=== PATIENT | female | born 1985 | race African-American/Black ===

== ENCOUNTER 2018-01-09 18:43 | Emergency (ER) | payer SELFPAY ==
[~2018-01-09 18:43] MED LIST: IBUP-232 PO; LABE300T PO; PREN1CAP
--- NOTE | 2018-01-09 20:36 | PD ---
HPI Chief Complaint cough, flu symptoms Travel History International Travel<30 Days: No Contact w/Intl Traveler<30Days: No Known Affected Area: No History of Present Illness HPI 32-year-old 002, IUP at 29.1 care Compcare by obesity, chronic hypertension The patient presents complaining of a cough, muscle aches over the past 3 days she reports that her baby's daddy was ill a week and a half ago with similar symptoms. She reports that her baby has had the same symptoms over the past 3 days and was seen in the ED tonight with negative influenza testing. She reports that they were told in the ED that her baby has a "cold." She denies any fever, chills, nausea, vomiting at home. She also reports that she has had some vague right-sided pain over the past 2 months. There were no aggravating features tonight however she had called the clinic and they suggested she come in and be checked out. She has taken one Tylenol one time. There are no aggravating factors or other attempted treatments. She denies any leaking of fluid, vaginal bleeding, uterine cramping, or painful contractions. She reports good movement. She reports the pain appears to be in the muscular layer as opposed to deep in the tissues. She denies any other complaints today. Weeks Gestation: 29 Para: 2 : 3 History Past Medical History Narrative Medical Obesity Chronic hypertension Obstetric History Obstetric History 002 2 Past Surgical History Surgical History: No Previous Surgery Family History Narrative Family History DM Social History Alcohol Use: No Tobacco Use: No Substance Abuse: No Allergies-Medications (Allergen,Severity, Reaction): Coded Allergies: No Known Allergies (Unverified , 08/23/16) Home Meds Active Scripts Ibuprofen (Ibuprofen) 600 Mg Tab, 600 MG PO Q6H Y for CRAMPING, #30 TAB Prov:Melanie Sanchez MD R3 08/20/16 Labetalol (Labetalol) 300 Mg Tab, 300 MG PO BID for Blood Pressure Management, # 30 TAB 0 Refills Prov:Melanie Sanchez MD R3 08/20/16 Reported Medications Vit W/ Fe Polysacch C (Vitafol Ultra 29-0.6-0.4-200 mg) 1 Cap Cap 07/12/16 Review of Systems Except as stated in HPI: all other systems reviewed are Neg Physical Exam Narrative GENERAL: Well-nourished, well-developed patient. SKIN: Warm and dry. HEAD: Normocephalic and atraumatic. EYES: No scleral icterus. No injection or drainage. ENT: No nasal drainage noted. Mucous membranes pink. Airway patent. NECK: Supple, trachea midline. No JVD. CARDIOVASCULAR: Regular rate and rhythm without murmurs, gallops, or rubs. RESPIRATORY: Breath sounds equal bilaterally. No accessory muscle use. BREASTS: Deferred ABDOMEN/GI: Abdomen soft, non-tender, bowel sounds present, no rebound, no guarding Gravid GENITOURINARY: Deferred FHT's: heart tones are in the 130s with moderate terminal press operator variability, good accels, and no decels. This is a category one heart rate tracing and reactive NST. EXTREMITIES: No cyanosis or edema. BACK: Nontender without obvious deformity. NEUROLOGICAL: Awake and alert. Motor and sensory grossly within normal limits. Normal speech. Psychiatric: grossly normal memory, affect Musculoskeletal: grossly normal ROM, gait, muscle strength Data Data Orders Orders Vital Signs (Adult) .ON ADMISSION (01/09/18 20:34) ^ Labor Status (01/09/18 20:34) ^ Non Stress Test (01/09/18 20:34) Diet Liquid (01/10/18 Breakfast) Influenzae A/B Antigen (01/09/18 20:35) MDM Plan A/P: 1. IUP at 29.1 2. Cough, URI: patient with viral type illness, negative influenza testing. Likely similar symptoms to child, recommend comfort measures, rest, tylenol. Strict influenza, fever precautions. 3. wellbeing: reassuring testing with reactive NST and category one heart rate testing. [facility] daily. 4. No evidence of labor, strict labor precautions. 5. Right sided pain: appears to be musculoskeletal, recommend comfort measures , tylenol. If no resolution or worsens, return to ED. 6. Follow up with primary Ob in 2-3 days or sooner if needed 7. History of chronic HTN: BP normal today with appropriate size cuff. 8. Follow up with primary Ob in 2-3 days or sooner if needed. Diagnosis Diagnosis: Primary Impression: 29 weeks gestation of Additional Impression: Viral respiratory illness Disposition: DISCHARGE HOME Condition: Helen Vera MD January 09, 2018 20:36
== END 2018-01-09 22:00 | disposition home or self-care (01) ==
LOC: HOBED 18:43
DX: O99.513 Diseases of the respiratory system complicating pregnancy, third trimester (principal); J06.9 Acute upper respiratory infection, unspecified; B97.89 Other viral agents as the cause of diseases classified elsewhere; O99.213 Obesity complicating pregnancy, third trimester; O10.013 Pre-existing essential hypertension complicating pregnancy, third trimester; Z3A.29 29 weeks gestation of pregnancy
CPT/HCPCS: 87804; 99283

== ENCOUNTER 2018-03-14 19:30 | Inpatient (IN) ==
--- NOTE | 2018-03-14 20:20 | ED ---
History of Present Illness Primary Care Physician: No Primary Care Physician Chief Complaint: Hypertension in the office History of Present Illness: 33-year-old who is at 38 weeks 3 days comes in for evaluation of high blood pressure. She states that she gets care at [facility] office and states that her blood pressure was 164/102 in the office. She has had hypertension with her 2 previous pregnancies with an induction due to the hypertension with her last patient's denies chronic hypertension and states that her blood pressures returned back to normal between pregnancies. She does have a family history of hypertension in the family. Patient denies any other antepartum complication and said to previously healthy spontaneous vaginal deliveries. First baby was 5 lbs. 15 oz. and second baby was 6-1/2 pounds. Her group B strep is negative Weeks Gestation:: 38 Para: 2 : 4 - Inpatient Certification If this patient has been admitted as an Inpatient: I certify that the inpatient services were ordered in accordance with Medicare regulations governing the order. This includes certification that hospital inpatient services are reasonable and necessary and in the case of services not specified as inpatient-only under 42 CFR 419.22(n), that they are appropriately provided as inpatient services in accordance to with the 2-midnight benchmark under 43 CFR 412.3(e) Estimated Total Length of Stay (Days): 3 Review of Systems All other systems reviewed negative except as stated in HPI PMFSH - History History Provided By: Patient - Medical / Surgical Hx Neg / Unobtainable Medical Problems Denied: Yes Surgical History: No Previous Surgery - Tobacco History Smoking Status: Never smoker - Alcohol History How Often Do You Have a Drink Containing Alcohol: Never - Substance Use History Substance History: No History of Abuse - Travel History History of Recent Travel: No Recent Travel in the [place] Within the Last 8 Weeks: No Recent Travel Out of the Country Within the Last 8 Weeks: No Medications and Allergies Allergies Allergy/AdvReac Type Severity Reaction Status Date / Time No Known Allergies Allergy Unknown NONE Uncoded 03/14/18 20:08 Home Medications Medication Instructions Recorded Confirmed Type PNV cmb#95-ferrous fumarate-FA 1 tab PO DAILY 03/07/18 03/07/18 History [] ferrous sulfate [Iron (ferrous 325 mg PO DAILY 03/07/18 03/07/18 History sulfate)] Exam Vital signs: Vital Signs 03/14/18 20:02 03/14/18 20:04 03/14/18 20:07 Temperature 98.3 F Pulse Rate 103 H 108 H Respiratory Rate 18 Blood Pressure 164/91 H 151/81 H Intake & Output 03/14/18 03/14/18 03/15/18 06:59 18:59 06:59 Weight 99.337 kg Narrative: Pelvic Exam: Cervix: [Posterior] Dilatation: [1-] Effacement: [-50] Station: [--4] Presentation: [-Vertex] Membranes: [intact or ruptured] intact Uterine Contractions: [-] Irregular occasional FHT's: Category: [-1] Baseline: [-140] Reactive: [-Moderate] Variability: [Moderate-] Decels: [-Absent] - Constitutional no acute distress - Routine HEENT Exam Head: Present: normocephalic, atraumatic - Routine Neck Exam Present: supple, full ROM - Routine Respiratory Exam Present: CTA bilaterally - Routine Cardiovascular Exam Present: RRR - Routine Abdominal Exam Present: soft, normoactive bowel sounds Results - Labs CBC & Chem 7: 03/14/18 20:45 03/14/18 20:27 Group B Strep: Negative Assessment and Plan - Diagnosis (1) 38 weeks gestation of Code(s): Z3A.38 - 38 weeks gestation of Status: Acute (2) Pre-eclampsia superimposed on chronic hypertension, antepartum Code(s): O11.9 - Pre-existing hypertension with pre-eclampsia, unspecified trimester; O10.019 - Pre-existing essential hypertension complicating , unspecified trimester Status: Acute - Plan Admit for induction of labor due to CHTN with superimposed preeclampsia Magnesium sulfate for prophylaxis Antihypertensives as necessary Discharge Plan - Discharge Disposition Patient Disposition: 30 Still Patient - Physicians Team ED Provider: Stefanie Brito Primary Care Provider: Primary Care Sandhya Armstrong - Rxs /Orders / Referrals /Forms Prescriptions: No Action ferrous sulfate [Iron (ferrous sulfate)] 325 mg (65 mg iron) Tablet 325 mg PO DAILY PNV cmb#95-ferrous fumarate-FA [] 28 mg iron- 800 mcg Tablet 1 tab PO DAILY - Discharge Instructions Print Language: Tajik
[2018-03-14 21:00] LABS: Hematocrit 37.6 % (35.0-46.0); Hemoglobin 12.7 gm/dL (11.6-15.3); Mean Corpuscular HGB Conc 33.9 % (32.0-36.0); Mean Corpuscular Hemoglobin 30.4 pg (27.0-34.0); Mean Corpuscular Volume 89.8 fL (80.0-100.0); Mean Platelet Volume 10.3 fL (7.0-11.0); Platelet Count 136 th/mm3 (150-450); Red Blood Count 4.19 mil/mm3 (4.00-5.30); Red Cell Distribution Width 14.9 % (11.6-17.2); White Blood Count 7.9 th/mm3 (4.0-11.0)
[2018-03-14 21:14] LABS: Albumin 2.8 g/dL (3.4-5.0); Anion Gap 13 meq/L (5-15); Aspartate Aminotransferase 9 U/L (15-37); Blood Urea Nitrogen 10 mg/dL (7-18); Calcium 9.1 mg/dL (8.5-10.1); Carbon Dioxide 19.2 meq/L (21.0-32.0); Chloride 109 meq/L (98-107); Glomerular Filtration Rate Greater Than 89 mL/min (>89); Glucose,Random 105 mg/dL (74-106); Potassium 3.4 meq/L (3.5-5.1); Sodium 141 meq/L (136-145); Uric Acid 5.1 mg/dl (2.6-6.0)
[2018-03-14 21:15] LABS: Alanine Aminotransferase 14 U/L (10-53)
[2018-03-14 21:17] LABS: Alkaline Phosphatase 101 U/L (45-117); Total Protein 6.5 g/dL (6.4-8.2)
[2018-03-14 21:18] LABS: Protein/Creatinine Ratio,Urine 0.13 (0.00-0.14)
[2018-03-14 21:24] LABS: Bacteria,Urine Moderate /hpf; Bilirubin,Urine Negative (Negative); Clarity,Urine Hazy (Clear); Color,Urine Yellow (Yellw/Straw); Glucose,Urine (UA) 50 mg/dL (Negative); Leukocyte Esterase,Urine Trace (Negative); Mucus,Urine Few /lpf (Occasional); Nitrite,Urine Negative (Negative); Specific Gravity,Urine 1.028 (1.002-1.035); Squamous Epithelial Cell,Urine 10 /hpf (0-5)
[2018-03-14] MEDS ORDERED: fentaNYL Citrate Inj 100 MCG/2 ML Ampul IV.PUSH PRN (21:44)
[2018-03-14] MEDS ORDERED: Sod Chloride 0.9% Inj 1,000 ML IV.CONT PRN (21:44)
[2018-03-14] MEDS ORDERED: Oxytocin 30 Units/500ml Premix 30 UNITS/500 ML BAG IV.SIG ONE (21:44)
[2018-03-14] MEDS ORDERED: Naloxone Inj 0.4 MG/ML Vial IV.PUSH PRN (21:44)
[2018-03-14] MEDS ORDERED: Sodium Chlor 0.9% Inj 500 ML IV.SIG PRN (21:44)
[2018-03-14] MEDS ORDERED: Citric Acid/Sodium Citrate Liq 30 ML UDC PO SCH (21:45)
[2018-03-14] MEDS ORDERED: Mag Sulf/Water 4 gm/100 ml 100 ML IV.SIG ONE (21:47)
[2018-03-14] MEDS ORDERED: Mag Sulf/Water 40 gm/1000 ml 40 GM/1,000 ML BAG IV.CONT SCH (22:00)
[2018-03-14 22:18] LABS: Amphetamine Urine With Conf Neg (Neg); Benzodiazepine Urine With Conf Neg (Neg)
[2018-03-14] MEDS ORDERED: Labetalol HCl Inj 100 MG/20 ML Vial IV.PUSH PRN ×3 (22:52→23:13)
[2018-03-14] MEDS ORDERED: Labetalol HCl Inj 100 MG/20 ML Vial ONE (22:53)
[2018-03-15] MEDS: Zolpidem Tartrate 5 MG Tablet PO PRN (00:40)
[2018-03-15] MEDS ORDERED: Calcium Chloride Inj 1 GM/10 ML Syringe IV.PUSH PRN (01:15)
[2018-03-15] MEDS ORDERED: Oxytocin 30 Units/500ml Premix 30 UNITS/500 ML BAG IV.SIG PRN (08:15)
--- NOTE | 2018-03-15 08:40 | P.OBLABOR ---
Subjective Interval history: Ms. Toledo is a 33 yo at 38/4 with chronic HTN and pre-eclampsia here for induction of labor. Cervidil placed last night and came out at about 6:00 today. Patient reports that she is only feeling minimal contractions. Cervical check- /-4. [address] cytotec 25mcg Objective Vital Signs: Vital Signs - 8 hr 03/15/18 01:00 03/15/18 01:35 03/15/18 01:40 Temperature Pulse Rate 97 H 98 H 100 H Respiratory Rate 16 Blood Pressure 149/97 H 03/15/18 02:00 03/15/18 02:10 03/15/18 02:25 Temperature Pulse Rate 98 H 98 H 99 H Respiratory Rate 16 Blood Pressure 146/102 H 03/15/18 02:40 03/15/18 02:59 03/15/18 03:00 Temperature Pulse Rate 106 H 101 H 103 H Respiratory Rate 18 Blood Pressure 124/79 03/15/18 03:25 03/15/18 03:30 03/15/18 03:50 Temperature Pulse Rate 103 H 105 H 102 H Respiratory Rate Blood Pressure 03/15/18 03:55 03/15/18 04:00 03/15/18 04:25 Temperature 98.1 F Pulse Rate 100 H 101 H 101 H Respiratory Rate 16 Blood Pressure 139/98 H 03/15/18 04:30 03/15/18 04:35 03/15/18 04:40 Temperature Pulse Rate 99 H 104 H Respiratory Rate 18 Blood Pressure 03/15/18 04:55 03/15/18 05:00 03/15/18 05:10 Temperature Pulse Rate 103 H 103 H Respiratory Rate 18 Blood Pressure 147/94 H 03/15/18 05:20 03/15/18 05:25 03/15/18 05:40 Temperature Pulse Rate 105 H 103 H 113 H Respiratory Rate Blood Pressure 03/15/18 05:55 03/15/18 05:59 03/15/18 06:05 Temperature Pulse Rate 110 H 100 H Respiratory Rate 20 Blood Pressure 159/108 H 03/15/18 06:10 03/15/18 06:15 03/15/18 06:25 Temperature Pulse Rate 102 H 102 H 100 H Respiratory Rate Blood Pressure 03/15/18 06:40 03/15/18 06:50 03/15/18 07:00 Temperature Pulse Rate 98 H 101 H Respiratory Rate 18 Blood Pressure 142/94 H 03/15/18 08:30 Temperature 97.8 F Pulse Rate 103 H Respiratory Rate 18 Blood Pressure 150/99 H Objective: Pelvic Exam: Cervix: Dilatation: 2 Effacement: 60 Station: -4 Membranes: intact Uterine Contractions: minimal FHT's: Category: 1 Baseline: 135 Reactive: yes Variability: moderate Decels: none Weeks Gestation: 38 Assessment and Plan - Diagnosis (1) 38 weeks gestation of Code(s): Z3A.38 - 38 weeks gestation of Status: Acute - Plan Continue with antepartum care. Pitocin 09/03/29. Place cytotec 25g
[2018-03-15] MEDS: fentaNYL Citrate Inj 100 MCG/2 ML Ampul IV.PUSH PRN ×2 (13:32→17:01)
--- NOTE | 2018-03-15 14:53 | P.OBLABOR ---
Subjective Interval history: Ms. Toledo is a 33yo at 38/4. At about 14:40 the patient began to vomit and reported feeling light headed. She feels as if she is having trouble staying awake. Nursing reports that the patient's urine output has been good. Mg has been running since about 22:00 yesterday. Objective Vital Signs: Vital Signs - 8 hr 03/15/18 06:50 03/15/18 07:00 03/15/18 08:30 Temperature 97.8 F Pulse Rate 101 H 103 H Respiratory Rate 18 18 Blood Pressure 142/94 H 150/99 H 03/15/18 08:55 03/15/18 09:00 03/15/18 09:05 Temperature Pulse Rate 103 H 109 H 102 H Respiratory Rate 18 Blood Pressure 125/75 03/15/18 09:10 03/15/18 10:10 03/15/18 10:25 Temperature Pulse Rate 101 H 105 H 109 H Respiratory Rate 18 Blood Pressure 139/83 03/15/18 10:50 03/15/18 10:57 03/15/18 11:10 Temperature Pulse Rate 95 H 100 H Respiratory Rate 18 Blood Pressure 134/97 H 03/15/18 11:25 03/15/18 11:55 03/15/18 11:59 Temperature Pulse Rate 107 H 100 H Respiratory Rate 18 Blood Pressure 03/15/18 12:00 03/15/18 13:00 03/15/18 13:20 Temperature 98.2 F Pulse Rate 94 H 96 H 95 H Respiratory Rate 18 Blood Pressure 142/92 H 144/101 H 03/15/18 14:00 03/15/18 14:41 03/15/18 14:42 Temperature Pulse Rate 93 H 95 H Respiratory Rate 18 Blood Pressure 142/95 H 158/107 H Objective: Cardiovascular: RRR, S1 and S2. Respiratory: Lungs CTAB, no accessory muscle use Neurologic: Reflexes unable to be elicited with stethoscope FHT's: Category: 2 Baseline: 135 Reactive: yes Variability: mild to moderate Decels: no Weeks Gestation: 38 Medical Induction Start Date: 03/14/18 Assessment and Plan - Diagnosis (1) 38 weeks gestation of Code(s): Z3A.38 - 38 weeks gestation of Status: Acute - Plan Category 2 FHT. D/c Mg Stat Mg level Zofran 4mg for nausea Monitor for clinical improvement
[2018-03-15] MEDS ORDERED: fentaNYL 2MCG-Bupiv 0.125% Epi 150 ML EPIDURAL ONE (18:53)
[2018-03-15] MEDS ORDERED: Lidocaine PF 1% Inj 30 ML Vial ONE (23:32)
[2018-03-16] MEDS ORDERED: Naloxone Inj 0.4 MG/ML Vial IV.PUSH PRN (02:19)
[2018-03-16] MEDS ORDERED: Witch Hazel 50%/Glyderin 12.5% 40 Pad Jar RECTAL PRN (02:19)
[2018-03-16] MEDS ORDERED: Bisacodyl 10 MG Supp RECTAL PRN (02:19)
[2018-03-16] MEDS ORDERED: Benzocaine 20% Top Spray 60 ML Can TOPICAL PRN (02:19)
--- NOTE | 2018-03-16 02:19 | P.OBDELI ---
Weeks Gestation: 38 Patient Started Active Labor: Yes Medical Induction of Labor: Yes Artificial Rupture of Membrane: No Anesthesia: Epidural Episiotomy: none Vaginal Delivery: Normal Presentation: Occiput anterior Nuchal Cord: None Delayed Cord Clamping (45 sec): Yes Placenta: Spontaneous delivery, 3 vessel cord Laceration: None Estimated blood loss (mL): 150 Infant: Female (wt pending, APGARs 9/9, delivered at 02:05)
[2018-03-16] MEDS ORDERED: Oxytocin 30 Units/500ml Premix 30 UNITS/500 ML BAG IV.CONT SCH (02:30)
--- NOTE | 2018-03-16 08:01 | P.PNOB ---
Subjective Post day: 0 Interval history: Ms Toledo delivered early this morning and has had no acute events since then; however, BP was elevated to 151/84. On recheck, BP was 141/81. Pain is controlled, voided twice, taking PO with no nausea, but not ambulating yet or BM , no flatulence. Bleeding is decreasing with no clots. Pt plans to breastfeed and augment with a bottle. She is contemplating a Nexplanon for control. All questions were answered. Denies CP, SOB, N/V/D, DVT pain. Objective Vital Signs/I&O: Vital Signs 03/15/18 08:30 03/15/18 08:55 03/15/18 09:00 Temperature 97.8 F Pulse Rate 103 H 103 H 109 H Respiratory Rate 18 18 Blood Pressure 150/99 H 125/75 03/15/18 09:05 03/15/18 09:10 03/15/18 10:10 Temperature Pulse Rate 102 H 101 H 105 H Respiratory Rate 18 Blood Pressure 139/83 03/15/18 10:25 03/15/18 10:50 03/15/18 10:57 Temperature Pulse Rate 109 H 95 H Respiratory Rate 18 Blood Pressure 03/15/18 11:10 03/15/18 11:25 03/15/18 11:55 Temperature Pulse Rate 100 H 107 H 100 H Respiratory Rate Blood Pressure 134/97 H 03/15/18 11:59 03/15/18 12:00 03/15/18 13:00 Temperature 98.2 F Pulse Rate 94 H 96 H Respiratory Rate 18 18 Blood Pressure 142/92 H 144/101 H 03/15/18 13:20 03/15/18 14:00 03/15/18 14:41 Temperature Pulse Rate 95 H 93 H 95 H Respiratory Rate Blood Pressure 142/95 H 158/107 H 03/15/18 14:42 03/15/18 15:01 03/15/18 15:08 Temperature Pulse Rate 88 Respiratory Rate 18 18 Blood Pressure 151/98 H 03/15/18 15:31 03/15/18 15:40 03/15/18 16:01 Temperature Pulse Rate 89 94 H Respiratory Rate 18 Blood Pressure 151/106 H 158/91 H 03/15/18 16:45 03/15/18 17:00 03/15/18 18:00 Temperature 98.1 F Pulse Rate 89 86 Respiratory Rate 18 18 Blood Pressure 143/99 H 147/108 H 03/15/18 19:06 03/15/18 19:10 03/15/18 19:21 Temperature Pulse Rate 115 H Respiratory Rate Blood Pressure 173/144 H 147/104 H 03/15/18 19:25 03/15/18 19:36 03/15/18 19:40 Temperature Pulse Rate 104 H 95 H 93 H Respiratory Rate Blood Pressure 127/79 118/78 03/15/18 19:42 03/15/18 19:51 03/15/18 21:31 Temperature 98.1 F Pulse Rate 106 H Respiratory Rate 18 Blood Pressure 108/65 128/77 03/15/18 21:34 03/15/18 21:46 03/15/18 22:01 Temperature 97.8 F Pulse Rate 100 H 87 Respiratory Rate Blood Pressure 126/88 122/79 03/15/18 22:15 03/15/18 22:31 03/15/18 23:00 Temperature Pulse Rate 87 86 87 Respiratory Rate Blood Pressure 115/78 117/73 96/73 L 03/15/18 23:15 03/15/18 23:45 03/16/18 00:16 Temperature Pulse Rate 87 108 H Respiratory Rate Blood Pressure 111/66 109/72 142/91 H 03/16/18 00:51 03/16/18 01:15 03/16/18 01:31 Temperature 98.3 F Pulse Rate 106 H 130 H Respiratory Rate Blood Pressure 135/93 H 140/104 H 03/16/18 02:40 03/16/18 02:45 03/16/18 03:10 Temperature 98.8 F Pulse Rate 130 H 108 H Respiratory Rate 18 18 Blood Pressure 148/83 H 150/94 H 03/16/18 03:13 03/16/18 05:30 Temperature 99.5 F Pulse Rate 115 H 105 H Respiratory Rate 20 Blood Pressure 99/74 L 151/84 H Intake & Output 03/15/18 03/16/18 03/16/18 18:59 06:59 18:59 Intake Total 1000 / 1000 Balance 1000 / 1000 Intake: IV 1000 / 1000 LR 1000 mL Inj 1,000 ML @ 75 1000 / 1000 mls/hr IV.CONT .[id number] [facility] Rx# :[id number] Result Diagrams: 03/14/18 20:45 03/14/18 20:27 Objective Remarks: GENERAL: Well-nourished, well-developed patient. CARDIOVASCULAR: Regular rate and rhythm without murmurs, gallops, or rubs. RESPIRATORY: Breath sounds equal bilaterally. No accessory muscle use. ABDOMEN/GI: Abdomen soft, non-tender. Fundus: Firm, non-tender at umbilicus. GENITOURINARY: Light to moderate bleeding. EXTREMITIES: No cyanosis or edema, non-tender, without signs of DVT. Medications and IVs: Active Medications Acetaminophen (Tylenol) 650 mg PO Q4H PRN PRN Reason: PAIN SCALE 1 TO 2 Al Hydroxide/Mg Hydroxide (Milk Of Magnesia Liq) 30 ml PO Q12H PRN PRN Reason: MILD CONSTIPATION Benzocaine (Americaine 20% Top Beyer) 1 spray TOPICAL Q4H PRN PRN Reason: For Perineum Discomfort Bisacodyl (Dulcolax Supp) 10 mg RECTAL DAILY PRN PRN Reason: SEVERE CONSITIPATION Calcium Chloride (Calcium Chloride Inj) 1 gm IV.PUSH PRN PRN PRN Reason: MAGNESIUM TOXICITY Citric Acid/Sodium Citrate (Sodium Citrate/Citric Acid Liq) 30 ml PO [employer] [facility] Stop: 03/18/18 21:44 Diphtheria/Pertussis/Tetanus Vacc (Boostrix Vaccine Inj) 0.5 ml IM .ONCE ONE Stop: 03/16/18 16:01 Fentanyl Citrate (Fentanyl Inj) 50 mcg IV.PUSH Q1H PRN PRN Reason: Pain Scale 3 - 5 Last Admin: 03/15/18 05:55 Dose: 50 mcg Fentanyl Citrate (Fentanyl Inj) 100 mcg IV.PUSH Q1H PRN PRN Reason: PAIN SCALE 6 TO 10 Last Admin: 03/15/18 17:01 Dose: 100 mcg Lactated Ringer's (Lr 1000 Ml Inj) 1,000 mls @ 125 mls/hr IV.CONT .Q8H [facility] Last Admin: 03/15/18 19:37 Dose: Not Given Sodium Chloride (Ns Inj) 500 mls @ 1,000 mls/hr IV.SIG UNSCH PRN PRN Reason: SEE LABEL COMMENTS Sodium Chloride (Ns Inj) 1,000 mls @ 100 mls/hr IV.CONT .Q10H PRN PRN Reason: SEE LABEL COMMENTS Lactated Ringer's (Lr 1000 Ml Inj) 1,000 mls @ 3,000 mls/hr IV.SIG UNSCH PRN PRN Reason: compromise or epidural Last Admin: 03/15/18 19:33 Dose: 3,000 mls/hr Lactated Ringer's (Lr 1000 Ml Inj) 1,000 mls @ 75 mls/hr IV.CONT .[id number] [facility] Last Admin: 03/15/18 11:32 Dose: 75 mls/hr Magnesium Sulfate (Magnesium Sulfate/Water 40 Gm/1000 Ml Premix) 40 gm in 1, 000 mls @ 50 mls/hr IV.CONT Q24H [facility] Last Admin: 03/14/18 22:31 Dose: 2 gm/hr, 50 mls/hr Acetaminophen (Ofirmev Inj) 1,000 mg in 100 mls @ 400 mls/hr IV.SIG Q8H PRN PRN Reason: PAIN SCALE 1 TO 10 Last Admin: 03/15/18 09:03 Dose: 400 mls/hr Oxytocin (Pitocin 30 Units/Ns 500 Ml Premix) 30 units in 500 mls @ 1 mls/hr IV.SIG TITRATE PRN; Protocol PRN Reason: For induction of labor Last Admin: 03/15/18 13:31 Dose: 1 milliunit/min, 1 mls/hr Labetalol HCl (Trandate Inj) 40 mg IV.PUSH NOW PRN PRN Reason: SEE LABEL COMMENTS Labetalol HCl (Trandate Inj) 80 mg IV.PUSH NOW PRN PRN Reason: SEE LABEL COMMENTS Lactulose (Lactulose Liq) 30 ml PO DAILY PRN PRN Reason: SEVERE CONSITIPATION Lidocaine HCl (Xylocaine 1% Inj) 0.1 ml I-DERMAL PRN PRN PRN Reason: For IV start Stop: 03/17/18 21:43 Lidocaine HCl (Xylocaine 1% Inj) 10 ml INFILTRATN PRN PRN PRN Reason: For episiotomy repair Stop: 03/16/18 21:43 Measles/Mumps/Rubella Vaccine Live (M-M-R Ii Vaccine Inj) 0.5 ml SQ .ONCE ONE Stop: 03/16/18 16:01 Mineral Oil (Muri-Lube Oil) 10 ml TOPICAL PRN PRN PRN Reason: PRN perineal massage Naloxone HCl (Narcan Inj) 0.1 mg IV.PUSH Q2M PRN PRN Reason: for opiate reversal Naloxone HCl (Narcan Inj) 0.1 mg IV.PUSH Q2M PRN PRN Reason: for opiate reversal Ondansetron HCl (Zofran Inj) 4 mg IV.PUSH Q6H PRN PRN Reason: NAUSEA OR VOMITING Last Admin: 03/15/18 22:32 Dose: 4 mg Ondansetron HCl (Zofran Odt) 4 mg PO Q6H PRN PRN Reason: NAUSEA OR VOMITING Vit/Calcium/Iron/Folic Ac (Stuartnatal Plus 3) 1 tab PO DAILY [facility] Senna/Docusate Sodium (Caron-Colace) 1 tab PO BID [facility] Sennosides (Senokot) 17.2 mg PO Q12H PRN PRN Reason: Moderate Constipation Sodium Chloride (Ns Flush) 2 ml IV.FLUSH BID [facility] Last Admin: 03/15/18 19:36 Dose: Not Given Sodium Chloride (Ns Flush) 2 ml IV.FLUSH PRN PRN PRN Reason: FLUSH AFTER USING IV ACCESS Sodium Chloride (Ns Flush) 2 ml IV.FLUSH BID [facility] Last Admin: 03/15/18 19:37 Dose: Not Given Sodium Chloride (Ns Flush) 2 ml IV.FLUSH PRN PRN PRN Reason: FLUSH AFTER USING IV ACCESS Sodium Chloride (Ns Flush) 2 ml IV.FLUSH BID [facility] Sodium Chloride (Ns Flush) 2 ml IV.FLUSH PRN PRN PRN Reason: FLUSH AFTER USING IV ACCESS Witch Tammie/Glycerin (Tucks Pads) 1 applicatio RECTAL QID PRN PRN Reason: HEMORRHOIDS Zolpidem Tartrate (Ambien) 5 mg PO HS PRN PRN Reason: INSOMNIA Last Admin: 03/15/18 00:40 Dose: 5 mg Assessment and Plan - Diagnosis (1) 38 weeks gestation of Code(s): Z3A.38 - 38 weeks gestation of Status: Acute Plan: 1. Routine care -PRN Motrin and tylenol for pain -Encourage OOB/ambulation -Encourage -Advised to take showers/no baths for next 2 weeks -Advised pelvic rest; no sexual activity for 6 weeks -Pt will discuss nexplanon at 6 week visit (2) Pre-eclampsia superimposed on chronic hypertension, delivered Code(s): O11.4 - Pre-existing hypertension with pre-eclampsia, complicating childbirth; O10.92 - Unspecified pre-existing hypertension complicating childbirth Status: Acute Plan: 1. Pre-eclampsia superimposed on chronic HTN -BP elevated this morning to 150s/100s -Monitor BP; consider PO Labetalol if SBP >160 and/or DBP > [address] Rayo - Plan Category 2 FHT. D/c Mg Stat Mg level Zofran 4mg for nausea Monitor for clinical improvement
[2018-03-16] MEDS: Prenatal Vit/Ca/Iron/Folic Acid Tablet PO SCH (09:55)
[2018-03-16] MEDS: Senna/Docusate Sodium 8.6/50 MG Tablet PO SCH ×2 (09:55→20:49)
[2018-03-16] MEDS: Ibuprofen 400 MG Tablet PO PRN ×2 (13:03→20:46)
[2018-03-16] MEDS ORDERED: NIFEdipine 10 MG Capsule PO SCH (14:16)
[2018-03-16] MEDS ORDERED: Measles/Mumps/Rubella Vaccine Inj 0.5 ML Vial SQ ONE (16:00)
[2018-03-16] MEDS ORDERED: Diphtheria/Tetanus/Pertussis Vaccine Inj 0.5 ML Syringe IM ONE (16:00)
[2018-03-16] MEDS ORDERED: NIFEdipine 10 MG Capsule PO ONE (20:00)
[2018-03-17] MEDS ORDERED: NIFEdipine 10 MG Capsule PO SCH (09:00)
[2018-03-17] MEDS: Prenatal Vit/Ca/Iron/Folic Acid Tablet PO SCH (09:07)
--- NOTE | 2018-03-17 09:27 | P.PNOB ---
Subjective Post day: 1 Interval history: day # 1. Decreased lochia. Denies dysuria. No breast tenderness. Appetite good. No nausea or vomiting. Ambulating well. Denies calf pain or shortness of breath. Otherwise, she is doing well this morning and has no other complaints. Objective Vital Signs/I&O: Vital Signs 03/16/18 10:06 03/16/18 10:07 03/16/18 12:55 Temperature Pulse Rate 105 H 97 H 96 H Respiratory Rate 20 Blood Pressure 147/84 H 153/81 H 03/16/18 14:08 03/16/18 14:56 03/16/18 14:59 Temperature Pulse Rate 95 H 82 Respiratory Rate 20 Blood Pressure 146/86 H 153/93 H 03/16/18 15:01 03/16/18 16:30 03/16/18 19:50 Temperature 97.9 F 98.1 F 98.7 F Pulse Rate 97 H 91 H Respiratory Rate 20 17 Blood Pressure 144/83 H 140/88 03/17/18 00:00 03/17/18 04:00 03/17/18 04:50 Temperature 98.7 F 98.6 F Pulse Rate 89 84 85 Respiratory Rate 18 19 Blood Pressure 148/91 H 153/97 H 141/85 H 03/17/18 08:10 03/17/18 09:10 Temperature 98.4 F Pulse Rate 87 100 H Respiratory Rate 16 Blood Pressure 143/94 H 143/97 H Result Diagrams: 03/14/18 20:45 03/14/18 20:27 Objective Remarks: GENERAL: Well-nourished, well-developed patient. CARDIOVASCULAR: Regular rate and rhythm without murmurs, gallops, or rubs. RESPIRATORY: Breath sounds equal bilaterally. No accessory muscle use. ABDOMEN/GI: Abdomen soft, non-tender. Fundus: Firm, non-tender at umbilicus. GENITOURINARY: Light to moderate bleeding. EXTREMITIES: No cyanosis or edema, non-tender, without signs of DVT. Medications and IVs: Active Medications Acetaminophen (Tylenol) 650 mg PO Q4H PRN PRN Reason: PAIN SCALE 1 TO 2 Al Hydroxide/Mg Hydroxide (Milk Of Magnesia Liq) 30 ml PO Q12H PRN PRN Reason: MILD CONSTIPATION Benzocaine (Americaine 20% Top [place]) 1 spray TOPICAL Q4H PRN PRN Reason: For Perineum Discomfort Bisacodyl (Dulcolax Supp) 10 mg RECTAL DAILY PRN PRN Reason: SEVERE CONSITIPATION Calcium Chloride (Calcium Chloride Inj) 1 gm IV.PUSH PRN PRN PRN Reason: MAGNESIUM TOXICITY Citric Acid/Sodium Citrate (Sodium Citrate/Citric Acid Liq) 30 ml PO [employer] [facility] Stop: 03/18/18 21:44 Fentanyl Citrate (Fentanyl Inj) 50 mcg IV.PUSH Q1H PRN PRN Reason: Pain Scale 3 - 5 Last Admin: 03/15/18 05:55 Dose: 50 mcg Fentanyl Citrate (Fentanyl Inj) 100 mcg IV.PUSH Q1H PRN PRN Reason: PAIN SCALE 6 TO 10 Last Admin: 03/15/18 17:01 Dose: 100 mcg Lactated Ringer's (Lr 1000 Ml Inj) 1,000 mls @ 125 mls/hr IV.CONT .Q8H [facility] Last Admin: 03/15/18 19:37 Dose: Not Given Sodium Chloride (Ns Inj) 500 mls @ 1,000 mls/hr IV.SIG UNSCH PRN PRN Reason: SEE LABEL COMMENTS Sodium Chloride (Ns Inj) 1,000 mls @ 100 mls/hr IV.CONT .Q10H PRN PRN Reason: SEE LABEL COMMENTS Lactated Ringer's (Lr 1000 Ml Inj) 1,000 mls @ 3,000 mls/hr IV.SIG UNSCH PRN PRN Reason: compromise or epidural Last Admin: 03/15/18 19:33 Dose: 3,000 mls/hr Lactated Ringer's (Lr 1000 Ml Inj) 1,000 mls @ 75 mls/hr IV.CONT .[id number] [facility] Last Admin: 03/15/18 11:32 Dose: 75 mls/hr Magnesium Sulfate (Magnesium Sulfate/Water 40 Gm/1000 Ml Premix) 40 gm in 1, 000 mls @ 50 mls/hr IV.CONT Q24H [facility] Last Admin: 03/14/18 22:31 Dose: 2 gm/hr, 50 mls/hr Acetaminophen (Ofirmev Inj) 1,000 mg in 100 mls @ 400 mls/hr IV.SIG Q8H PRN PRN Reason: PAIN SCALE 1 TO 10 Last Admin: 03/15/18 09:03 Dose: 400 mls/hr Oxytocin (Pitocin 30 Units/Ns 500 Ml Premix) 30 units in 500 mls @ 1 mls/hr IV.SIG TITRATE PRN; Protocol PRN Reason: For induction of labor Last Admin: 03/15/18 13:31 Dose: 1 milliunit/min, 1 mls/hr Labetalol HCl (Trandate Inj) 40 mg IV.PUSH NOW PRN PRN Reason: SEE LABEL COMMENTS Labetalol HCl (Trandate Inj) 80 mg IV.PUSH NOW PRN PRN Reason: SEE LABEL COMMENTS Lactulose (Lactulose Liq) 30 ml PO DAILY PRN PRN Reason: SEVERE CONSITIPATION Lidocaine HCl (Xylocaine 1% Inj) 0.1 ml I-DERMAL PRN PRN PRN Reason: For IV start Stop: 03/17/18 21:43 Mineral Oil (Muri-Lube Oil) 10 ml TOPICAL PRN PRN PRN Reason: PRN perineal massage Naloxone HCl (Narcan Inj) 0.1 mg IV.PUSH Q2M PRN PRN Reason: for opiate reversal Naloxone HCl (Narcan Inj) 0.1 mg IV.PUSH Q2M PRN PRN Reason: for opiate reversal Nifedipine (Procardia) 10 mg PO TID [facility] Last Admin: 03/17/18 09:07 Dose: 10 mg Ondansetron HCl (Zofran Inj) 4 mg IV.PUSH Q6H PRN PRN Reason: NAUSEA OR VOMITING Last Admin: 03/15/18 22:32 Dose: 4 mg Ondansetron HCl (Zofran Odt) 4 mg PO Q6H PRN PRN Reason: NAUSEA OR VOMITING Vit/Calcium/Iron/Folic Ac (Stuartnatal Plus 3) 1 tab PO DAILY [facility] Last Admin: 03/17/18 09:07 Dose: 1 tab Senna/Docusate Sodium (Caron-Colace) 1 tab PO BID [facility] Last Admin: 03/16/18 20:49 Dose: Not Given Sennosides (Senokot) 17.2 mg PO Q12H PRN PRN Reason: Moderate Constipation Sodium Chloride (Ns Flush) 2 ml IV.FLUSH BID [facility] Last Admin: 03/15/18 19:36 Dose: Not Given Sodium Chloride (Ns Flush) 2 ml IV.FLUSH PRN PRN PRN Reason: FLUSH AFTER USING IV ACCESS Sodium Chloride (Ns Flush) 2 ml IV.FLUSH BID [facility] Last Admin: 03/15/18 19:37 Dose: Not Given Sodium Chloride (Ns Flush) 2 ml IV.FLUSH PRN PRN PRN Reason: FLUSH AFTER USING IV ACCESS Sodium Chloride (Ns Flush) 2 ml IV.FLUSH BID [place] Sodium Chloride (Ns Flush) 2 ml IV.FLUSH PRN PRN PRN Reason: FLUSH AFTER USING IV ACCESS Witch Tammie/Glycerin (Tucks Pads) 1 applicatio RECTAL QID PRN PRN Reason: HEMORRHOIDS Zolpidem Tartrate (Ambien) 5 mg PO HS PRN PRN Reason: INSOMNIA Last Admin: 03/15/18 00:40 Dose: 5 mg Assessment and Plan - Diagnosis (1) 38 weeks gestation of Code(s): Z3A.38 - 38 weeks gestation of Status: Acute (2) Pre-eclampsia superimposed on chronic hypertension, delivered Code(s): O11.4 - Pre-existing hypertension with pre-eclampsia, complicating childbirth; O10.92 - Unspecified pre-existing hypertension complicating childbirth Status: Acute - Plan 33 y/o female who is PPD# 1 s/p . Pre-eclampsia superimposed on chronic HTN. BP 141/85 this morning, had not received Procardia dose yet. -Monitor BP, continue Procardia 10mg PO TID -Continue routine care. -Motrin PRN pain. -Encouraged OOB. Advised pelvic rest for 6 wks. -Re: ctrl, she would like to discuss a nexplanon at her 6 week followup. -D/c in 1-[address] Brito
[2018-03-17] MEDS: Senna/Docusate Sodium 8.6/50 MG Tablet PO SCH (10:35)
[2018-03-17] MEDS: Ibuprofen 400 MG Tablet PO PRN ×2 (16:09→23:43)
[2018-03-17] MEDS: Acetaminophen 325 MG Tablet PO PRN ×2 (18:31→23:42)
[2018-03-17] MEDS: Zolpidem Tartrate 5 MG Tablet PO PRN (23:44)
[2018-03-18] MEDS: Ibuprofen 400 MG Tablet PO PRN (08:34)
[2018-03-18] MEDS: Acetaminophen 325 MG Tablet PO PRN (08:34)
[2018-03-18] MEDS: Prenatal Vit/Ca/Iron/Folic Acid Tablet PO SCH (08:34)
[2018-03-18] MEDS: Senna/Docusate Sodium 8.6/50 MG Tablet PO SCH (08:35)
--- NOTE | 2018-03-18 09:03 | P.PNOB ---
Subjective Post day: 2 Interval history: Ms. Toledo is a 33yo on PPD2 from at 38/5 No overnight events. 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 She is urinating without difficulties and has had a bowel movement. She does report an isolated moderate headache last night that was lessened with Tylenol. She denies headache this am. She denies vision changes, leg pain, dizziness, chest pain, difficulty breathing, nausea, or vomiting. She is breast feeding and feels as if her milk is coming in. She would like nexplanon for control. Objective Vital Signs/I&O: Vital Signs 03/17/18 09:10 03/17/18 10:58 03/17/18 13:10 Temperature Pulse Rate 100 H 100 H 103 H Respiratory Rate Blood Pressure 143/97 H 154/85 H 115/93 H 03/17/18 13:12 03/17/18 13:15 03/17/18 13:36 Temperature 98.5 F Pulse Rate Respiratory Rate 12 Blood Pressure 138/87 03/17/18 13:37 03/17/18 13:39 03/17/18 14:15 Temperature Pulse Rate 101 H 98 H 100 H Respiratory Rate Blood Pressure 147/92 H 140/84 03/17/18 17:59 03/17/18 19:50 03/17/18 20:27 Temperature 98.1 F 98.1 F Pulse Rate 94 H 108 H Respiratory Rate 14 18 Blood Pressure 150/91 H 156/104 H 147/98 H 03/17/18 22:00 03/17/18 23:40 03/18/18 05:20 Temperature Pulse Rate 111 H 102 H 96 H Respiratory Rate 18 18 17 Blood Pressure 142/81 H 135/93 H 137/94 H 03/18/18 08:00 Temperature 98.8 F Pulse Rate 110 H Respiratory Rate 18 Blood Pressure 154/91 H Result Diagrams: 03/14/18 20:45 03/14/18 20:27 Objective Remarks: GENERAL: Well-nourished, well-developed patient. CARDIOVASCULAR: Regular rate and rhythm without murmurs, gallops, or rubs. RESPIRATORY: Breath sounds equal bilaterally. No accessory muscle use. ABDOMEN/GI: Abdomen soft, non-tender. Bowel sounds present. Fundus: Firm, non-tender about 3 cm below umbilicus. GENITOURINARY: Light to moderate bleeding. EXTREMITIES: Trace edema bilaterally. No cyanosis, non-tender, without signs of DVT. Medications and IVs: Active Medications Acetaminophen (Tylenol) 650 mg PO Q4H PRN PRN Reason: PAIN SCALE 1 TO 2 Last Admin: 03/18/18 08:34 Dose: 650 mg Al Hydroxide/Mg Hydroxide (Milk Of Magnesia Liq) 30 ml PO Q12H PRN PRN Reason: MILD CONSTIPATION Benzocaine (Americaine 20% Top [place]) 1 spray TOPICAL Q4H PRN PRN Reason: For Perineum Discomfort Bisacodyl (Dulcolax Supp) 10 mg RECTAL DAILY PRN PRN Reason: SEVERE CONSITIPATION Calcium Chloride (Calcium Chloride Inj) 1 gm IV.PUSH PRN PRN PRN Reason: MAGNESIUM TOXICITY Citric Acid/Sodium Citrate (Sodium Citrate/Citric Acid Liq) 30 ml PO BOX [facility] Stop: 03/18/18 21:44 Fentanyl Citrate (Fentanyl Inj) 50 mcg IV.PUSH Q1H PRN PRN Reason: Pain Scale 3 - 5 Last Admin: 03/15/18 05:55 Dose: 50 mcg Fentanyl Citrate (Fentanyl Inj) 100 mcg IV.PUSH Q1H PRN PRN Reason: PAIN SCALE 6 TO 10 Last Admin: 03/15/18 17:01 Dose: 100 mcg Lactated Ringer's (Lr 1000 Ml Inj) 1,000 mls @ 125 mls/hr IV.CONT .Q8H [facility] Last Admin: 03/15/18 19:37 Dose: Not Given Sodium Chloride (Ns Inj) 500 mls @ 1,000 mls/hr IV.SIG UNSCH PRN PRN Reason: SEE LABEL COMMENTS Sodium Chloride (Ns Inj) 1,000 mls @ 100 mls/hr IV.CONT .Q10H PRN PRN Reason: SEE LABEL COMMENTS Lactated Ringer's (Lr 1000 Ml Inj) 1,000 mls @ 3,000 mls/hr IV.SIG UNSCH PRN PRN Reason: compromise or epidural Last Admin: 03/15/18 19:33 Dose: 3,000 mls/hr Lactated Ringer's (Lr 1000 Ml Inj) 1,000 mls @ 75 mls/hr IV.CONT .[id number] [facility] Last Admin: 03/15/18 11:32 Dose: 75 mls/hr Magnesium Sulfate (Magnesium Sulfate/Water 40 Gm/1000 Ml Premix) 40 gm in 1, 000 mls @ 50 mls/hr IV.CONT Q24H [facility] Last Admin: 03/14/18 22:31 Dose: 2 gm/hr, 50 mls/hr Acetaminophen (Ofirmev Inj) 1,000 mg in 100 mls @ 400 mls/hr IV.SIG Q8H PRN PRN Reason: PAIN SCALE 1 TO 10 Last Admin: 03/15/18 09:03 Dose: 400 mls/hr Oxytocin (Pitocin 30 Units/Ns 500 Ml Premix) 30 units in 500 mls @ 1 mls/hr IV.SIG TITRATE PRN; Protocol PRN Reason: For induction of labor Last Admin: 03/15/18 13:31 Dose: 1 milliunit/min, 1 mls/hr Labetalol HCl (Trandate Inj) 40 mg IV.PUSH NOW PRN PRN Reason: SEE LABEL COMMENTS Labetalol HCl (Trandate Inj) 80 mg IV.PUSH NOW PRN PRN Reason: SEE LABEL COMMENTS Lactulose (Lactulose Liq) 30 ml PO DAILY PRN PRN Reason: SEVERE CONSITIPATION Mineral Oil (Muri-Lube Oil) 10 ml TOPICAL PRN PRN PRN Reason: PRN perineal massage Naloxone HCl (Narcan Inj) 0.1 mg IV.PUSH Q2M PRN PRN Reason: for opiate reversal Nifedipine (Procardia) 10 mg PO TID [facility] Last Admin: 03/17/18 09:07 Dose: 10 mg Nifedipine (Procardia) 20 mg PO TID [facility] Last Admin: 03/18/18 08:34 Dose: 20 mg Ondansetron HCl (Zofran Inj) 4 mg IV.PUSH Q6H PRN PRN Reason: NAUSEA OR VOMITING Last Admin: 03/15/18 22:32 Dose: 4 mg Ondansetron HCl (Zofran Odt) 4 mg PO Q6H PRN PRN Reason: NAUSEA OR VOMITING Vit/Calcium/Iron/Folic Ac (Stuartnatal Plus 3) 1 tab PO DAILY [facility] Last Admin: 03/18/18 08:34 Dose: 1 tab Senna/Docusate Sodium (Caron-Colace) 1 tab PO BID [facility] Last Admin: 03/18/18 08:35 Dose: Not Given Sennosides (Senokot) 17.2 mg PO Q12H PRN PRN Reason: Moderate Constipation Sodium Chloride (Ns Flush) 2 ml IV.FLUSH BID [facility] Last Admin: 03/15/18 19:36 Dose: Not Given Sodium Chloride (Ns Flush) 2 ml IV.FLUSH PRN PRN PRN Reason: FLUSH AFTER USING IV ACCESS Sodium Chloride (Ns Flush) 2 ml IV.FLUSH BID [facility] Last Admin: 03/17/18 23:45 Dose: 2 ml Sodium Chloride (Ns Flush) 2 ml IV.FLUSH PRN PRN PRN Reason: FLUSH AFTER USING IV ACCESS Sodium Chloride (Ns Flush) 2 ml IV.FLUSH BID [place] Sodium Chloride (Ns Flush) 2 ml IV.FLUSH PRN PRN PRN Reason: FLUSH AFTER USING IV ACCESS Witch Tammie/Glycerin (Tucks Pads) 1 applicatio RECTAL QID PRN PRN Reason: HEMORRHOIDS Zolpidem Tartrate (Ambien) 5 mg PO HS PRN PRN Reason: INSOMNIA Last Admin: 03/17/18 23:44 Dose: 5 mg Assessment and Plan - Diagnosis (1) 38 weeks gestation of Code(s): Z3A.38 - 38 weeks gestation of Status: Acute Plan: t (2) Pre-eclampsia superimposed on chronic hypertension, delivered Code(s): O11.4 - Pre-existing hypertension with pre-eclampsia, complicating childbirth; O10.92 - Unspecified pre-existing hypertension complicating childbirth Status: Acute - Plan 33 y/o female who is PPD# 2 s/p . Pre-eclampsia superimposed on chronic HTN. Elevated BP- patient denies any headaches or vision changes this morning. BP 137 /94 this morning, had not received Procardia dose yet. Peak systolic overnight was 156. Patient will be d/c with RX for Procardia 20TID. Follow up in one week with Triny Evans for BP. Patient counselled to return sooner for evaluation if she develops severe headaches, vision changes. care- plans for d/c today with Motrin and Tylenol for pain. Continue . Pelvic rest for 6 weeks. Showers instead of baths for the next 2 weeks. Follow-up in 6 weeks with Triny Evans for visit and discussion of nexplanon. DW Dr Ty SDW Dr Donovan
== END 2018-03-18 12:45 | disposition home or self-care (01) ==
LOC: HOBED 19:30 → H2E 21:46 → H1EA 03-16 04:30
PROVIDERS: ADMIT Obstetrics & Gynecology Obstetrics; ATTEND Obstetrics & Gynecology Obstetrics